=== PATIENT | male | born 1990 | race Two or more races ===

== ENCOUNTER 2019-09-17 18:44 | Emergency (ER) | payer SELFPAY ==
[~2019-09-17] VITALS: Ht 157.5 cm; Wt 61.4 kg
[2019-09-17] MEDS ORDERED: IBUPROFEN 600 MG TABLET PO ONE (19:45)
[2019-09-17] MEDS ORDERED: SODIUM CHLORIDE 0.9% 1,000 ML IV ONE (20:00)
[2019-09-17 20:22] VITALS: BP 123/85
== END 2019-09-17 20:35 | disposition home or self-care (01) ==
LOC: EMS 18:46
DX: M79.604 Pain in right leg (principal); R03.0 Elevated blood-pressure reading, without diagnosis of hypertension